=== PATIENT | female | born 1980 | race Caucasian/White ===

== ENCOUNTER 2021-05-13 14:42 | Emergency (ER) | payer BC, SELFPAY ==
[2021-05-13 14:50] VITALS: BP 145/102; PULSE 84; RESP 25; TEMP 37.2; O2SAT 100; BMI 25.2
--- NOTE | 2021-05-13 15:01 | ED_ITS ---
HPI - Dizziness General: Chief Complaint: Headache Stated Complaint: WEAKNESS; RIGHT SIDE NUMBNESS Time Seen by Provider: 05/13/21 14:44 Source: patient Mode of arrival: EMS Limitations: no limitations History of Present Illness: HPI Narrative: This patient was transported to our emergency department via air EVAC. This occurred from the patient's home. The patient states that today while eating with her family and she was sitting on a recliner she developed some pain in her trunk and neck and this was followed by a sensation of lightheadedness and feeling like she had numbness in her face and her hands and feet. She states that the symptoms persisted and this was followed by episodes of loose stool. She states that she did not have a headache associated with the symptoms or difficulty with speech. He felt like her heart was racing for period of time which is not unusual for her. She states that her symptoms are some better but still not resolved. She freely admits she has a history of anxiety. She also admits to a history of fibromyalgia recently diagnosed. She has multiple musculoskeletal pains that are thus far unexplained other than 5 by fibromyalgia. She relates those onset of symptoms back to after she had her gallbladder removed. She states she does not smoke cigarettes, rarely drinks alcohol and does not use any street drugs. Denies energy drinks or other stimulants. She states she is recently undergone some chiropractic manipulation over the past couple of weeks. Initial visit resulted in spinal manipulation at various levels to include cervical manipulation. She states that there was some popping of her neck involved in the cervical manipulation as well as her other axial spine locations. She denied any sensation of numbness headache or other symptoms associated with that manipulation. She states that she also had some manipulation of her ribs due to having a rib out of place and that she has been having increasing pain in her right rib cage. She denies any falls or trauma. Her a sensation of lightheadedness was just that feeling lightheaded. MD elicited complaint: lightheadedness and near syncope Associated symptoms: Reports palpitations; Denies chest pain, chills, headache(s), malaise or vomiting Associated neuro symptoms: Reports numbness in extremities Review of Systems Const: Denies: fever(s), chills, malaise or night sweats Eyes: Reports: blurry vision; Denies: change in vision or eye discomfort ENMT: Denies: throat pain, uvular edema or odynophagia Card: Reports: palpitations and lightheadedness; Denies: chest pain Resp: Denies: productive cough or non-productive cough GI: Reports: diarrhea; Denies: abdominal pain or vomiting : Denies: flank pain, difficulty voiding or dysuria Musc: Reports: neck pain and back pain Skin/Breast: Denies: rash, pruritus or erythema Neuro: Reports: numbness in extremities and sensory changes; Denies: headache(s), weakness in extremities, vertigo, Slurred speech present or seizure-like activity Endo: Denies: polyuria Mike/Lymph: Denies: easy bruising Physical Exam Narrative: EXAM NARRATIVE: Patient makes good eye contact. Her speech is somewhat pressured but she is logical and flowing in her answers to questions. There is to be in no acute distress. Const: COMMON NORMALS: average body habitus and patient oriented x3 HENMT: COMMON NORMALS: normocephalic, atraumatic, Normal external nose present and moist oral mucous membranes HEAD & SCALP: normocephalic and atraumatic FACE & SINUS: face symmetric; sinuses not nontender NOSE: Normal external nose present THROAT: no uvular edema Eye: COMMON NORMALS: Equal, round and reactive pupils present, EOMs intact bilaterally and conjunctivae normal CONJUNCTIVA: Yes conjunctivae normal PUPIL: Yes Equal, round and reactive pupils present Neck/C-Spine: COMMON NORMALS: full ROM, no meningeal signs, no JVD, Thyroid normal and No carotid bruits THYROID: Thyroid normal OTHER: She has tenderness along the superior border the trapezius particularly more on the left than the right but however range of motion is normal. There is no skin rashes noted. Lymph: LYMPHATIC: no lymphadenopathy noted Chest: COMMONS NORMALS: normal inspection of the chest and normal palpation of entire chest wall Resp: COMMON NORMALS: normal respiratory effort, No retractions and clear to auscultation bilaterally AUSCULTATION: clear to auscultation bilaterally Cardio: COMMON NORMALS: no JVD, regular rhythm and No murmurs present (Cardio) RHYTHM: regular rhythm GI: COMMON NORMALS: Normal to inspection, nondistended, normoactive bowel sounds present, Soft to palpation and non-tender PALPATION: Yes Soft to palpation Back/Pelvis: COMMON NORMALS: thoracic and lumbar spine normal to inspection and thoraco-lumbar ROM normal THORACIC SPINE/UPPER BACK: Yes other soft tissue findings (Soft tissue tenderness particularly on the left posterior t horax along the ) Extremity: COMMON NORMALS: normal to inspection, full ROM, capillary refill normal, no joint enlargement and no calf tenderness Neuro: COMMON NORMALS: patient oriented x3, moves all extremities, no focal motor deficits, no sensory deficits noted and deep tendon reflexes 2+ bilaterally MENINGEAL SIGNS: Yes no meningeal signs CRANIAL NERVES: Yes CN normal except as noted OTHER: NIH completed. 0 at this time. Psych: COMMON NORMALS: mental status grossly normal, Normal thought process present, normal affect, speech normal and denies hallucinations SPEECH: Yes normal speech THOUGHT PROCESS: Normal thought process present Skin: COMMON NORMALS: no rashes or lesions noted GENERAL SKIN EXAM: no rashes or lesions noted Course ED course: Patient remained stable while in the emergency department. Vital signs are normal. No new or focal findings on repeat examination. I discussed current findings with both she and spouse who are now present. No evidence of a ongoing emergency medical condition including dissection stroke etc. I think this is likely related to exaggerated anxiety reaction from pain response due to her musculoskeletal discomfort. They voiced understanding of our discussion. They were appreciative of care. Vital Signs: Vital signs: Vital Signs Temperature 98.9 F 05/13/21 14:50 Pulse Rate 82 05/13/21 15:52 Respiratory Rate 25 H 05/13/21 15:52 Blood Pressure 131/87 05/13/21 15:52 Pulse Oximetry 98 05/13/21 15:52 [facility] - Dizziness Medical Decision Making This patient presented via air care with symptoms strongly suggestive of possible anxiety reaction however because of some of her constellation of symptoms, recent cervical and spinal [employer] choir chiropractic manipulation there was a slight concern about possibility of a vertebral artery or carotid artery dissection. Her imaging labs etc. have been very reassuring. She is remained stable. No evidence at this time of an ongoing emergency medical condition. She does have history of chronic musculoskeletal pain which has been attributed to fibromyalgia and also freely admits a history of anxiety which in combination is likely contributing to her current presentation but no evidence of any condition requiring further admission and/or observation at this time. Lab Data I reviewed the patient's lab results. : 05/13/21 15:00 05/13/21 15:[address] 05/13/21 15:12 IMPRESSION: No acute intracranial abnormality. Head/Neck CTA 05/13/21 15:12 IMPRESSION: No large vessel stenosis or occlusion. IMPRESSION: No stenosis or occlusion. REFERENCES: NASCET CRITERIA. The degree of internal carotid artery stenosis is based on NASCET criteria. Normal is no stenosis. Mild is less than 50% stenosis. Moderate is 50-69% stenosis. Severe is 70% to 99% stenosis. Total occlusion is no detectable patent lumen. Laboratory Results WBC 7.1 10^3/uL (4.0-10.0) 05/13/21 15:00 RBC 4.29 10^6/uL (4.1-5.3) 05/13/21 15:00 Hgb 14.0 g/dL (11.5-15.3) 05/13/21 15:00 Hct 40.8 % (37.0-47.0) 05/13/21 15:00 MCV 95.1 fl (81-99) 05/13/21 15:00 MCH 32.6 pg (28.0-34.0) 05/13/21 15:00 MCHC 34.3 g/dL (30.0-36.0) 05/13/21 15:00 RDW 12.4 % (12.1-15.1) 05/13/21 15:00 Plt Count 297 10^3/cmm (130-400) 05/13/21 15:00 MPV 10.8 fL (7.4-10.4) H 05/13/21 15:00 Neut % (Auto) 73.0 % 05/13/21 15:00 Lymph % (Auto) 17.9 % 05/13/21 15:00 Walker % (Auto) 6.9 % 05/13/21 15:00 Eos % (Auto) 1.0 % 05/13/21 15:00 Baso % (Auto) 0.8 % 05/13/21 15:00 Neut # (Auto) 5.17 10^3/uL (1.8-7.7) 05/13/21 15:00 Lymph # (Auto) 1.3 10^3/uL (0.8-4.8) 05/13/21 15:00 Walker # (Auto) 0.5 10^3/uL (0.2-0.9) 05/13/21 15:00 Eos # (Auto) 0.1 10^3/uL (0.0-0.8) 05/13/21 15:00 Baso # (Auto) 0.1 10^3/uL (0.0-0.1) 05/13/21 15:00 Nucleated RBC % (auto) 0 % 05/13/21 15:00 Nucleated RBCs # 0.0 /100WBC 05/13/21 15:00 ESR 3 mm/hr (0-15) 05/13/21 15:00 Sodium 141 mmol/L (136-145) 05/13/21 15:00 Potassium 3.7 mmol/L (3.5-5.1) 05/13/21 15:00 Chloride 108 mmol/L (98-107) H 05/13/21 15:00 Carbon Dioxide 18 mmol/L (22-29) L 05/13/21 15:00 Anion Gap 18.7 (5-19) 05/13/21 15:00 BUN 12 mg/dL (6-20) 05/13/21 15:00 Creatinine 0.9 mg/dL (0.5-0.9) 05/13/21 15:00 GFR Calculation 68.7 mL/min (90-130) L 05/13/21 15:00 Glucose 99 mg/dL (65-115) 05/13/21 15:00 Calculated Osmolality 292 mOsm/kg (285-295) 05/13/21 15:00 Calcium 9.9 mg/dL (8.5-10.5) 05/13/21 15:00 Total Bilirubin 0.4 mg/dL (0.15-1.2) 05/13/21 15:00 AST 16 U/L (0-32) 05/13/21 15:00 ALT 15 U/L (0-33) 05/13/21 15:00 Alkaline Phosphatase 66 IU/L (35-105) 05/13/21 15:00 Total Protein 6.9 g/dL (6.6-8.7) 05/13/21 15:00 Albumin 4.7 g/dL (3.5-5.2) 05/13/21 15:00 Globulin 2.2 g/dL (1.3-4.6) 05/13/21 15:00 TSH 2.54 uIU/mL (0.27-4.20) 05/13/21 15:00 EKG Data EKG 1: EKG interpretation time: 15:15 Interpretation: Resting EKG reveals sinus rate at 84 bpm. Normal intervals normal axis. No significant or concerning ST-T wave changes. Discharge Plan Discharge Patient Disposition: Home Clinical Impression: Acute anxiety, History of fibromyalgia Condition: Stable Discharge Orders: Discharge ED (Routine); Ordered 05/13/21 Ordered By: Jan Thomas Discharge Diet: Usual diet Discharge Activity: Resume usual activity Patient Instructions: Opioid Safety Activity Restrictions/Additional Instructions: As we discussed all your evaluation in the emergency department today was reassuring and did not reveal any serious medical conditions such as a stroke, injury to your arteries in your neck etc. as a cause of your symptoms. As we discussed we think likely some acute pain related to your recent exacerbation of musculoskeletal pains likely triggered a exaggerated nervous and anxiety response to day. If your symptoms return and persist worsen or other concerns arise please return to this emergency department immediately otherwise follow-up with your regular doctor for reevaluation and continued care. Coding Level of Care Code ED Bore Miner Operator for Chg Fwd Exam Comprehensive
--- NOTE | 2021-05-13 15:12 | CTR_ITS ---
PROCEDURE INFORMATION: Exam: CT Angiography Head With Contrast, Arteriography Exam date and time: 05/13/2021 3:12 PM Age: 41 years old Clinical indication: Numbness; Additional info: Numbness; HX of cervial manipulation TECHNIQUE: Imaging protocol: Computed tomography angiography of the head with contrast. Exam focused on the arteries. 3D rendering (Not supervised by radiologist): MIP and/or 3D reconstructed images were created by the technologist. Radiation optimization: All CT scans at this facility use at least one of these dose optimization techniques: automated exposure control; mA and/or kV adjustment per patient size (includes targeted exams where dose is matched to clinical indication); or iterative reconstruction. Contrast material: OMNIPAQUE 350; Contrast volume: 95 ml; Contrast route: INTRAVENOUS (IV); COMPARISON: CT head wo con* [id number] 05/13/2021 3:40 PM RADIATION DOSE METRICS: Total DLP (mGy-cm): 1703.45 FINDINGS: ANTERIOR CIRCULATION: Right internal carotid artery: Unremarkable. Intracranial segment is patent with no significant stenosis. No aneurysm. Right middle cerebral artery: Unremarkable. No occlusion or significant stenosis. No aneurysm. Right anterior cerebral artery: Unremarkable. No occlusion or significant stenosis. No aneurysm. Left internal carotid artery: Unremarkable. Intracranial segment is patent with no significant stenosis. No aneurysm. Left middle cerebral artery: Unremarkable. No occlusion or significant stenosis. No aneurysm. Left anterior cerebral artery: Unremarkable. No occlusion or significant stenosis. No aneurysm. POSTERIOR CIRCULATION: Right vertebral artery: Unremarkable. No occlusion or significant stenosis. No aneurysm. Left vertebral artery: Unremarkable. No occlusion or significant stenosis. No aneurysm. Basilar artery: Unremarkable. No occlusion or significant stenosis. No aneurysm. Right posterior cerebral artery: Unremarkable. No occlusion or significant stenosis. No aneurysm. Left posterior cerebral artery: Unremarkable. No occlusion or significant stenosis. No aneurysm. Brain: No definite mass, mass effect, or midline shift. Cerebral ventricles: No ventriculomegaly. Bones/joints: Unremarkable. No acute fracture. Soft tissues: Unremarkable. PROCEDURE INFORMATION: Exam: CT Angiography Neck With Contrast Exam date and time: 05/13/2021 3:12 PM Age: 41 years old Clinical indication: Numbness; Additional info: Numbness; HX of cervial manipulation TECHNIQUE: Imaging protocol: Computed tomography angiography of the neck with contrast. 3D rendering (Not supervised by radiologist): MIP and/or 3D reconstructed images were created by the technologist. Radiation optimization: All CT scans at this facility use at least one of these dose optimization techniques: automated exposure control; mA and/or kV adjustment per patient size (includes targeted exams where dose is matched to clinical indication); or iterative reconstruction. Contrast material: OMNIPAQUE 350; Contrast volume: 95 ml; Contrast route: INTRAVENOUS (IV); COMPARISON: CT head wo con* [id number] 05/13/2021 3:40 PM RADIATION DOSE METRICS: Total DLP (mGy-cm): 1703.45 FINDINGS: Right common carotid artery: No stenosis. No dissection or occlusion. Right internal carotid artery: No stenosis of the extracranial segment. No dissection or occlusion. Right external carotid artery: No occlusion or stenosis of the origin. Left common carotid artery: No stenosis. No dissection or occlusion. Left internal carotid artery: No stenosis of the extracranial segment. No dissection or occlusion. Left external carotid artery: No occlusion or stenosis of the origin. Right vertebral artery: No stenosis. No dissection or occlusion. Left vertebral artery: No stenosis. No dissection or occlusion. Soft tissues: Normal. No significant soft tissue swelling. Bones/joints: No acute fracture. CT/CT angio headneck* [id number] IMPRESSION: No large vessel stenosis or occlusion. IMPRESSION: No stenosis or occlusion. REFERENCES: NASCET CRITERIA. The degree of internal carotid artery stenosis is based on NASCET criteria. Normal is no stenosis. Mild is less than 50% stenosis. Moderate is 50-69% stenosis. Severe is 70% to 99% stenosis. Total occlusion is no detectable patent lumen.
--- NOTE | 2021-05-13 15:12 | CTR_ITS ---
PROCEDURE INFORMATION: Exam: CT Head Without Contrast Exam date and time: 05/13/2021 3:12 PM Age: 41 years old Clinical indication: Numbness / parasthesia; Right TECHNIQUE: Imaging protocol: Computed tomography of the head without contrast. Radiation optimization: All CT scans at this facility use at least one of these dose optimization techniques: automated exposure control; mA and/or kV adjustment per patient size (includes targeted exams where dose is matched to clinical indication); or iterative reconstruction. COMPARISON: No relevant prior studies available. RADIATION DOSE METRICS: Total DLP (mGy-cm): 758.21 FINDINGS: Brain: Normal. No hemorrhage. Unremarkable white matter. No mass effect. Cerebral ventricles: No ventriculomegaly. Paranasal sinuses: Visualized sinuses are unremarkable. No fluid levels. Mastoid air cells: Visualized mastoid air cells are well aerated. Bones/joints: Unremarkable. No acute fracture. Soft tissues: Unremarkable. CT/CT head wo con* [id number] IMPRESSION: No acute intracranial abnormality.
--- NOTE | 2021-05-13 15:13 | ECG_ITS ---
[facility] Test Date: 2021-05-13 Pat Name: Amanda Rivers Department: Room: Gender: Female Tire Repairman: : 1980 Requested By: Jan Thomas Order Number: [id number] Melendez MD: Naldo Salmeron M.D. Measurements Intervals [place] Rate: 84 P: 41 TX: 141 QRS: 74 QRSD: 90 T: 35 QT: 369 QTc: 438 Interpretive Statements SINUS RHYTHM MINIMAL ST DEPRESSION [0.025+ mV ST DEPRESSION] No previous ECG available for comparison Electronically Signed On 05-14-2021 12:13:38 LEAD SOFTWARE DEVELOPMENT ENGINEER by Naldo Salmeron M.D. [id number]
--- NOTE | 2021-05-13 15:20 | PC.NURSE ---
PT AMBULATORY TO RESTROOM.
[2021-05-13 15:28] LABS: Basophils # 0.1 10^3/uL (0.0-0.1); Basophils % 0.8 %; Eosinophils # 0.1 10^3/uL (0.0-0.8); Hematocrit 40.8 % (37.0-47.0); Lymphocytes # 1.3 10^3/uL (0.8-4.8); Lymphocytes % 17.9 %; Mean Corpuscular HGB Conc 34.3 g/dL (30.0-36.0); Mean Corpuscular Hemoglobin 32.6 pg (28.0-34.0); Mean Corpuscular Volume 95.1 fl (81-99); Mean Platelet Volume 10.8 fL (7.4-10.4); Monocytes # 0.5 10^3/uL (0.2-0.9); Monocytes % 6.9 %; Neutrophils # 5.17 10^3/uL (1.8-7.7); Nucleated Red Blood Cells % 0 %; Platelet Count 297 10^3/cmm (130-400); Red Blood Count 4.29 10^6/uL (4.1-5.3); Red Cell Distribution Width 12.4 % (12.1-15.1); White Blood Count 7.1 10^3/uL (4.0-10.0)
[2021-05-13 15:39] LABS: Alanine Aminotransferase 15 U/L (0-33); Albumin Level 4.7 g/dL (3.5-5.2); Alkaline Phosphatase 66 IU/L (35-105); Anion Gap 18.7 (5-19); Aspartate Amino Transferase 16 U/L (0-32); Blood Urea Nitrogen 12 mg/dL (6-20); Calcium 9.9 mg/dL (8.5-10.5); Carbon Dioxide 18 mmol/L (22-29); Chloride 108 mmol/L (98-107); Globulin 2.2 g/dL (1.3-4.6); Glomerular Filtration Rate 68.7 mL/min (90-130); Glucose 99 mg/dL (65-115); Osmolality Calculated 292 mOsm/kg (285-295); Potassium 3.7 mmol/L (3.5-5.1); Sodium 141 mmol/L (136-145); Total Bilirubin 0.4 mg/dL (0.15-1.2); Total Protein 6.9 g/dL (6.6-8.7)
[2021-05-13] MEDS: iohexol 350 mg/mL 100 mL Btl IV (15:42)
[2021-05-13 15:50] LABS: Erythrocyte Sedimentation Rate 3 mm/hr (0-15)
[2021-05-13 15:52] VITALS: BP 131/87; PULSE 82; RESP 25; O2SAT 98
[2021-05-13 16:16] LABS: Thyroid Stimulating Hormone 2.54 uIU/mL (0.27-4.20)
[2021-05-13 17:06] VITALS: BP 137/86; PULSE 78; RESP 18; O2SAT 98
[2021-05-13] MEDS: naproxen 500 mg Tablet PO (17:06)
== END 2021-05-13 17:08 | disposition home or self-care (01) ==
PROVIDERS: Emergency Provider Emergency Medicine
DX: F41.9 Anxiety disorder, unspecified (principal); M79.7 Fibromyalgia
CPT/HCPCS: 70450; 70496; 70498; 80053; 84443; 85025; 85651; 93005; 99283; Q9967